=== PATIENT | male | born 1965 | race Native Hawaiian/Other Pacific Islander ===

== ENCOUNTER 2017-07-26 22:59 | Emergency (ER) | payer OTHER ==
--- NOTE | 2017-07-27 01:35 | ED ---
General Adult HPI - General Chief complaint: Recheck/Abnormal Lab/Rx Stated complaint: High BP-Hx Stoke Time Seen by Provider: 07/27/17 00:33 Source: patient, family, RN notes reviewed Mode of arrival: ambulatory Limitations: no limitations - History of Present Illness Initial comments: 51-year-old male presents to the emergency department with a chief complaint of concern for blood pressure. He stated his blood pressure is running higher at home they were recently started on Cymbalta which they noticed a side effect of the medication so they're wondering if they couldn't stop it or not. They state the blood pressure was 170s over 90s at home. He has had absolutely no symptoms now pain no discomfort no changes in urination no headache. They state that they just wanted to make sure that he was okay. They state that they 've had 2 doses of the Cymbalta and they recently increased his blood pressure medications regularly at 2 doses of that as well. He states there is no other symptoms and the patient. Patient states she is otherwise feeling well. Patient denies any recent fever, chills, shortness of breath, chest pain, back pain, abdominal pain, nausea vomiting, numbness or tingling, dysuria or hematuria, constipation or diarrhea, headaches or visual changes, or any other current symptoms. - Related Data Allergies Allergy/AdvReac Type Severity Reaction Status Date / Time amphetaminil Allergy Hallucinati Verified 07/26/17 23:26 ons Iodinated Contrast- Oral and Allergy Swelling Verified 07/26/17 23:26 IV Dye Review of Systems ROS Statement: Those systems with pertinent positive or pertinent negative responses have been documented in the HPI. ROS Other: All systems not noted in ROS Statement are negative. Past Medical History Past Medical History: CVA/TIA, Diabetes Mellitus, Hyperlipidemia, Hypertension, Myocardial Infarction ([place]) Additional Past Medical History / Comment(s): Intracranial bleed, AAA back in 2104, History of Any Multi-Drug Resistant Organisms: None Reported Past Surgical History: Heart Catheterization With Stent, Orthopedic Surgery, Pacemaker Past Psychological History: Anxiety, Depression Smoking Status: Never smoker Past Alcohol Use History: Unable to Obtain Past Drug Use History: None Reported General Exam Limitations: no limitations General appearance: alert, in no apparent distress ENT exam: Present: normal exam, mucous membranes moist Neck exam: Present: normal inspection. Absent: tenderness, meningismus, lymphadenopathy Respiratory exam: Present: normal lung sounds bilaterally. Absent: respiratory distress, wheezes, rales, rhonchi, stridor Cardiovascular Exam: Present: regular rate, normal rhythm, normal heart sounds. Absent: systolic murmur, diastolic murmur, rubs, gallop, clicks Extremities exam: Present: normal inspection, full ROM, normal capillary refill. Absent: tenderness, pedal edema, joint swelling, calf tenderness Neurological exam: Present: alert, oriented X3 Psychiatric exam: Present: normal affect, normal mood Skin exam: Present: warm, dry, intact, normal color. Absent: rash Course Vital Signs 07/26/17 07/27/17 23:18 01:04 Temperature 98.6 F Pulse Rate 64 Respiratory 18 Rate Blood Pressure 177/91 146/92 O2 Sat by Pulse 99 Oximetry Medical Decision Making - Medical Decision Making 51-year-old male presents for recheck of blood pressure. At this time blood pressure is stable. This and we discussed the could stop the Cymbalta state which she is to do that. We discussed continuing the blood pressure medications as prescribed. We discussed follow-up with his Dr. alissa chou. They stated they understood and the on agreement this plan. All questions have been answered. They will be discharged. Disposition Clinical Impression: Hypertension Disposition: HOME SELF-CARE Condition: Stable Instructions: Hypertension (ED) Additional Instructions: Please use medication as discussed. Please follow up with family doctor if symptoms have not improved over the next two days. Please return to the emergency room if your symptoms increase or worsen or for any other concerns. Referrals: Jose Ramon Corcoran MD [Primary Care Provider] - 1-2 days Time of Disposition: 01:35
[2017-07-27 02:13] VITALS: BP 146/90; PULSE 61; RESP 17; TEMP 97.9
== END 2017-07-27 02:13 | disposition home or self-care (01) ==
LOC: EC 22:59
DX: I10 Essential (primary) hypertension (principal); Z86.73 Personal history of transient ischemic attack (TIA), and cerebral infarction without residual deficits; Z95.0 Presence of cardiac pacemaker; Z95.5 Presence of coronary angioplasty implant and graft; Z88.8 Allergy status to other drugs, medicaments and biological substances; Z91.041 Radiographic dye allergy status
CPT/HCPCS: 99282

== ENCOUNTER → 2017-09-23 | Outpatient (CLI) | payer OTHER ==
[2017-09-22 16:14] VITALS: BMI 35.9
[2017-09-23 12:35] VITALS: BP 143/79; PULSE 67; RESP 18
--- NOTE | 2017-09-23 13:02 | P.HPIM ---
History of Present Illness H&P Date: 09/23/17 Chief Complaint: left-sided body pain This is a 51-year-old patient referred by Dr. Corcoran for chronic pain in left side of his body after CVA approximately one year ago, and spasticity. Patient has been taking medications from primary care physician including Gill medications with some relief. Patient denies adverse drug effects from medications. Patient also denies new-onset weakness, bowel/bladder incontinence , or any other signs or symptoms of cauda equina syndrome. There are no signs of acute intoxication, and no indications of medication diversion or overuse. Patient notes that pain worsens significantly with turning his neck and moving his left leg, and improves with rest and medication. Patient has used several types of medications for pain, including NSAIDS, OPIOIDS, TRAMADOL. His states he had poor reactions to gabapentin, topiramate, and Lyrica. Patient HAS NOT had surgery. Patient HAS had injections previously without relief. Patient HAS NOT had physical therapy recently. In addition to above, 13-point review of systems is also negative for chest pain , shortness of breath, changes in vision, changes in hearing, new onset weakness , abdominal pain, diarrhea, extreme fatigue, malaise, fever, skin changes, homicidal or suicidal ideation, or bowel or bladder incontinence. 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 compared to RUE Lower extremity: decreased strength left hip, knee, and ankle in all motions 4/ 5 compared to RLE 5/5 Past Medical History Past Medical History: CVA/TIA, Diabetes Mellitus, Hyperlipidemia, Hypertension, Memory Impairment, Myocardial Infarction ([place]) Additional Past Medical History / Comment(s): September CVA-left side spasms with numbness from neck to back on left side and johnny lower ext neuropathy-STM loss,Intracranial bleed September, AAA back in 2014 Last Myocardial Infarction Date:: History of Any Multi-Drug Resistant Organisms: None Reported Past Surgical History: AICD, Coronary Bypass/CABG, Heart Catheterization With Stent, Orthopedic Surgery, Pacemaker Additional Past Surgical History / Comment(s): triple bypass 2013,heart stents x4,lt knee procedure Past Anesthesia/Blood Transfusion Reactions: No Reported Reaction Date of Last Stent Placement:: unk Type of Cardiac Device: Permanent Pacemaker, AICD Device Placement Date:: 09-29-16 [facility] Smoking Status: Former smoker - Past Family History Mother Family Medical History: No Reported History Medications and Allergies Home Medications Medication Instructions Recorded Confirmed Type Insulin Glargine,Hum.rec.anlog 50 unit SQ HS 08/19/17 09/23/17 History [Lantus Solostar] metFORMIN HCL [Glucophage] 1,000 mg PO BID 08/19/17 09/23/17 History sitaGLIPtin [Januvia] 100 mg PO DAILY 08/19/17 09/23/17 History Aspirin 81 mg PO DAILY 09/22/17 09/23/17 History Atorvastatin [Lipitor] 20 mg PO MOTH 09/22/17 09/23/17 History Hydrochlorothiazide 25 mg PO DAILY 09/22/17 09/23/17 History Hydrocodone/Acetaminophen 1 each PO QID 09/22/17 09/23/17 History [Hydrocodon-Acetaminoph 7.5-325] Lisinopril 40 mg PO BID 09/22/17 09/23/17 History Metoprolol Tartrate [Lopressor] 100 mg PO BID 09/22/17 09/23/17 History cloNIDine HCL [Catapres] 0.1 mg PO BID 09/22/17 09/23/17 History hydrALAZINE HCL [Apresoline] 25 mg PO TID 09/22/17 09/23/17 History Allergies Allergy/AdvReac Type Severity Reaction Status Date / Time amitriptyline Allergy Hallucinati Verified 09/23/17 12:27 ons baclofen Allergy Rash/Hives Verified 09/23/17 12:27 Iodinated Contrast- Oral and Allergy Swelling Verified 09/23/17 12:27 IV Dye Physical Exam Vitals: Vital Signs Pulse Resp BP Pulse Ox 09/23/17 12:28 67 18 143/79 95 Intake and Output 09/22/17 09/23/17 09/23/17 22:59 06:59 14:59 Other: Weight 113.398 kg Assessment and Plan (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 Explanation: Opioid and psychological risk scores were reviewed. Diagnoses , prognoses, and multiple treatment options including but not limited to physical therapy, interventional therapies, adjuvant medical therapies, narcotic medication therapies, and surgery were discussed with the patient and all questions were answered to the patient's satisfaction. 2. Opioid agreement: no opioids prescribed today 3. Counseling: The patient was counseled extensively on SMOKING CESSATION, BODY MASS INDEX, EXERCISE. Specifically, the patient was instructed regarding the importance of smoking cessation, weight control, and exercise in the context of both chronic pain and overall health. 4. Procedures: none for now, consider IT trial with Prialt if covered by insurance 5. Consultations: none for now 6. Investigations: none for now 7. Medications: none prescribed 8. Disposition: f/u in 4 weeks for re-eval. states she will bring list of neuropathic agents that patient has tried for central pain to next visit. PQRS measures: 1-Patient's medications are documented in the chart. 2-Tobacco use is negative, counseling given 3-Patient has not had a pneumococcal vaccine. 4-Advanced care planning discussed, patient unable to give. 5-Opioid contract NOT signed with the patient. 6-Pain positive, follow-up visit or procedure scheduled 7-Patient's blood pressure measured and documented, and patient will follow up with the primary care due to hypertension. 8-Patient's weight was measured, and body mass index ABOVE the normal limits, and counseling was done. Patient instructed to follow up with PCP. 9-Patient WAS NOT identified as an unhealthy alcohol user. Time with Patient: Greater than 30
== END ==
LOC: PNWHC3 11:55
PROVIDERS: ATTEND Anesthesiology
DX: G89.0 Central pain syndrome (principal); G89.4 Chronic pain syndrome; Z87.891 Personal history of nicotine dependence; Z79.84 Long term (current) use of oral hypoglycemic drugs; Z79.82 Long term (current) use of aspirin; Z79.899 Other long term (current) drug therapy; Z91.048 Other nonmedicinal substance allergy status; Z88.8 Allergy status to other drugs, medicaments and biological substances
CPT/HCPCS: 99211